=== PATIENT | male | born 1960 | race African-American/Black ===

== ENCOUNTER 2024-11-15 18:39 | Emergency (ER) | payer OTHER, SELFPAY ==
[2024-11-15] VITALS (21 sets, daily range): BP systolic 186–231; BP diastolic 109–157; PULSE 60–78; RESP 13–23; TEMP 36.9; O2SAT 93–100
--- NOTE | ~2024-11-15 | CT_ITS ---
History: Vertigo PROCEDURE: CT head without contrast. COMPARISON: 03/26/2014 TECHNIQUE: Axial imaging of the head performed from the skull base to the vertex without IV contrast. Sagittal a nd coronal reformations obtained. DLP: 605 mGy-cm FINDINGS: The ventricles are normal in size, shape and position. There is no mass, mass effect or midline shift. There is no abnormal extra-axial fluid collection or intracranial hemorrhage. Visualized paranasal sinuses are clear. The mastoid air cells are well aerated. No acute displaced fractures within the overlying cranium. Impression: No acute intracranial hemorrhage or suspicious mass effect. Reviewed, dictated and finalized at location A. Impression: No acute intracranial hemorrhage or suspicious mass effect.
--- NOTE | ~2024-11-15 | CT_ITS ---
CTA brain carotid Ordering provider: Prasanna Elliott MD History: . cva . Comparison: None. Technique: CT angiogram head and neck was performed following timed intravenous injection of contrast . Thin slice axial images and reformatted coronal images were obtained. Three dimensional reformatted images of the brain were also obtained using a [employer] workstation. FINDINGS: HEAD: --ANTERIOR AND MIDDLE CEREBRAL ARTERIES AND BRANCHES: Normal caliber and contour. --INTERNAL CAROTID ARTERIES: Mild atheromatous disease but no significant stenosis. No occlusion. --BASILAR ARTERY AND BRANCHES: Mild atheromatous disease but no stenosis or occlusion. 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 --ANEURYSM: None visualized. --BRAIN: Please refer to report of CT head performed the same day. --BONES AND SUPERFICIAL SOFT TISSUES: Please refer to report of CT head performed the same day. --PARANASAL SINUSES AND MASTOIDS: Please refer to report of CT head done the same day. NECK: --RIGHT CERVICAL CAROTID SYSTEM: Normal caliber and contour. Percent stenosis per NASCET criteria is 0% No carotid dissection. --LEFT CERVICAL CAROTID SYSTEM: Normal caliber and contour. Percent stenosis per NASCET criteria is 0% No carotid dissection. --VERTEBRAL ARTERIES: Moderate atheromatous disease within the origin of the bilateral vertebral williams richelle. --VISUALIZED AORTIC ARCH AND BRANCHING VESSELS: Normal caliber and contour. No significant atheromato us disease. --SOFT TISSUES: Unremarkable --CERVICAL SPINE: Age appropriate degenerative changes. IMPRESSION: 1. Percent stenosis per NASCET criteria within the internal carotid arteries bilaterally is 0%. 2. Significant calcified atheromatous disease margins of the bilateral vertebral arteries without po ststenotic dilatation or additional abnormality. Reviewed, dictated and finalized at location A. IMPRESSION: 1. Percent stenosis per NASCET criteria within the internal carotid arteries b ilaterally is 0%. 2. Significant calcified atheromatous disease margins of the bilateral vertebr al arteries without poststenotic dilatation or additional abnormality.
--- NOTE | ~2024-11-15 | XR_ITS ---
CHEST RADIOGRAPH CLINICAL HISTORY: CVA . COMPARISON: None available TECHNIQUE: Single portable view of the chest. FINDINGS The cardiomediastinal silhouette is unremarkable. The lungs are clear. IMPRESSION: No focal infiltrate or effusion. Reviewed, dictated and finalized at location A.
--- NOTE | 2024-11-15 18:51 | ECG_ITS ---
Test Date: 2024-11-15 19:08:49 Measurements Intervals [place] Rate: 71 P: 34 SC: 160 QRS: 55 QRSD: 88 T: 55 QT: 391 QTc: 426 Interpretive Statements SINUS RHYTHM POSSIBLE LEFT ATRIAL ENLARGEMENT MINIMAL Q WAVES- INFERIOR LEADS BORDERLINE T WAVE ABNORMALITY- ANTERIOR LEADS BORDERLINE ECG No previous ECG available for comparison Electronically Signed On 11-15-2024 20:15:55 CDT by Robel Márquez D.O.
[2024-11-15 19:05] LABS: Glucose Point of Care 124 mg/dl (65-105)
[2024-11-15 19:15] LABS: Basophils Absolute Auto 0.03 K/mm3 (0.00-0.10); Basophils Percent Auto 0.6 % (0.0-1.0); Eosinophils Absolute Auto 0.11 K/mm3 (0.02-0.50); Hematocrit 45.8 % (40.0-54.0); Hemoglobin 14.7 g/dL (14.0-18.0); Immature Granulocyte Absolute 0.02 K/mm3 (0.00-0.00); Immature Granulocyte Percent A 0.4 % (0.0-0.0); Lymphocytes Absolute Auto 1.49 K/mm3 (1.10-4.50); Lymphocytes Percent Auto 27.5 % (18.0-42.0); Mean Corpuscular HGB Conc 32.1 g/dL (32-36); Mean Corpuscular Hemoglobin 28.3 pg (27.0-31.0); Mean Corpuscular Volume 88.1 fL (78.0-102.0); Mean Platelet Volume 9.4 fl (8.7-11.0); Monocytes Absolute Auto 0.47 K/mm3 (0.10-0.90); Monocytes Percent Auto 8.7 % (2.0-11.0); Neutrophils Percent Auto 60.8 % (50.0-70.0); Platelet Count Result 183 K/mm3 (150-420); Red Cell Distribution Width 13.4 % (11.6-14.4); White Blood Count 5.4 K/mm3 (4.8-10.8)
[2024-11-15 19:27] LABS: Alanine Aminotransferase 20 U/L (6-50); Alkaline Phosphatase 62 U/L (38-126); Anion Gap 4 mmol/L (4-12); Aspartate Amino Transferase 35 U/L (17-59); Bilirubin,Total 0.4 mg/dL (0.2-1.3); Blood Urea Nitrogen 23 mg/dL (9-20); Calcium 8.9 mg/dL (8.4-10.2); Carbon Dioxide 30 mmol/L (22-30); Chloride 107 mmol/L (98-107); Estimated CRCL calculation 41 ml/min; Estimated Glomerular Filt Rate 37; Glucose 110 mg/dL (65-110); Osmolality Calculated 296 mOsm/kg (285-295); Potassium 3.6 mmol/L (3.4-5.0); Sodium 141 mmol/L (137-145); Total Protein 7.1 g/dL (6.3-8.2)
[2024-11-15 19:28] LABS: Partial Thromboplastin Time 26.5 Sec (23.9-30.70); Prothrombin Time 10.6 Seconds (9.50-12.1)
[2024-11-15 19:36] LABS: Add Urine Microscopic? YES; Appearance Urine Clear (Clear); Bilirubin Urine Negative (Negative); Blood Urine 1+ (Negative); Color Urine Light Yellow (Yellow); Glucose Urine UA Negative (Negative); Ketones Urine Negative (Negative); Leukocyte Esterase Ur Trace LEU/UL (Negative); Nitrate Urine Negative (Negative); Protein Urine Trace (Negative); Urobilinogen Urine 0.2 mg/dL (0.2-1.0)
[2024-11-15 19:38] LABS: Troponin I 0.012 ng/mL (0.000-0.034)
[2024-11-15 19:43] LABS: Bacteria Urine None seen /hpf; RBC Urine 0-2 /hpf (0-2); Squamous Epithelial Cell Urine None seen /hpf (Few); WBC Urine 0-3 /hpf (0-3)
[2024-11-15 19:54] LABS: Amphetamine Screen Urine Negative (Negative); Barbiturate Screen Urine Negative (Negative); Benzodiazepines Screen Urine Negative (Negative); Cannabinoid Screen Urine Negative (Negative); Cocaine Screen Urine Negative (Negative); Methadone Screen Urine Negative (Negative); Opiate Screen Urine Negative (Negative); Phencyclidine Screen Urine Negative (Negative)
[2024-11-15] MEDS: LABETALOL HCL INJ 100 MG/20 ML VIAL 10 MG IV PUSH (21:09)
[2024-11-15] MEDS: ASPIRIN 325 MG ENTERIC TABLET PO (22:22)
--- NOTE | 2024-11-15 22:46 | ED_ITS ---
HPI - Neuro Symptoms/Deficit General Chief Complaint: Dizziness Stated Complaint: dizziness Time Seen by Provider: 11/15/24 19:25 Source: patient and family Mode of arrival: ambulatory Limitations: no limitations History of Present Illness HPI Narrative: Patient is a 64-year-old male with difficulty walking during tasks due to his right lower extremity giving some weakness sensation. This has been on and off for the past week. He also has difficulty with his speech finding words at times in the past 4 days. He presents to the emergency room after symptoms started a few days ago. They have been ongoing symptoms for the past few days. He is not a tPA candidate. patient was on high blood pressure medications in the past but had side effects and kidney changes so he stopped all the medicine on his own sometime ago. Onset (ago): day(s) Timing confirmed by: spouse Location: speech and right leg History of same: Yes ( For the past week) Severity: mild Quality: weak ( right lower extremity) Relieving factors: time Exacerbating factors: none Context: gradual onset On Anticoagulants: No Associated symptoms: denies other symptoms Treatments Prior to Arrival: none Related Data Home Medications ?Medication ?Instructions ?Recorded ?Confirmed ?Last Taken ?Type amlodipine 5 mg-benazepril 20 mg 1 cap PO DAILY 09/25/23 09/25/23 Unknown History capsule Allergies Allergy/AdvReac Type Severity Reaction Status Date / Time No Known Allergies Allergy Verified 11/15/24 18:45 Review of Systems 2 Review of Systems: All systems reviewed & are unremarkable except as noted in HPI and below Constitutional: Constitutional: Reports no additional constitutional complaints Eyes: Eyes: Reports no additional eye complaints ENT: Reports system reviewed and no additional complaints, except as documented Cardiovascular: Cardiovascular: Reports no additional cardiovascular complaints Respiratory: Respiratory: Reports no additional respiratory complaints Gastrointestinal: Gastrointestinal: Reports no additional gastrointestinal complaints Genitourinary: Genitourinary: Reports no additional male genitourinary complaints Musculoskeletal: Musculoskeletal: Reports no additional musculoskeletal complaints Integumentary/Breasts: Skin/Breast: Reports system reviewed and no additional complaints, except as docu Neurologic: Reports system reviewed and no additional complaints, except as documented Psychiatric: Psychiatric: Reports no additional psychiatric complaints Endocrine: Endocrine: Reports no additional endocrine complaints Hematologic/Lymphatic: Hematologic/Lymphatic: Reports no additional hematologic/lymphatic complaints Allergic/Immunologic: Allergic/Immunologic: Reports no additional allergic/immunologic complaints [facility] Past Medical History Medical History Hyperlipidemia Hypertension CKD (chronic kidney disease) Family History Family History Mother Hypertension Esophageal cancer Social History Social History Smoking status: Never smoker Second hand tobacco smoke exposure: No Alcohol intake: never Substance use: never Substance use type: unknown Do You Feel Safe in your Home?: Yes Lack of Transportation: No Lack of Food: Never True Current Housing: I Have Housing Concerned About Future Housing: No Difficulty Paying Gas/Electric Bills: No Difficulty Paying for Meds: No Currently Unemployed: No Education: Bachelor's Degree Difficulty w/ Childcare or Family Care: No Gender identity (if verbalized by the patient): Male Exam 2 Const: General: healthy appearing Nutritional Appearance: well nourished Orientation/consciousness: patient oriented x3 Limitations: no limitations HENMT: Head: normal to inspection Ears: external ears normal F uziel/Nose/Sinus: Normal external nose present Eyes: Conjunctivae: conjunctivae normal Pupils: Equal, round and reactive pupils present EOM: EOMs intact bilaterally Neck: Neck: normal visual inspection Chest: Chest palpation & inspection: normal inspection of the chest Resp: Effort & Inspection: normal respiratory effort and not labored A uscultation: clear to auscultation bilaterally and no crackles Cardio: Rate: regular rate Rhythm: regular rhythm Heart sounds: no murmurs GI: Inspection: non-distended GI Palp: Yes Soft to palpation and No Tenderness to palpation present (GI) Auscultation: normal bowel sounds : General: Yes bladder normal to palpation Back/Spine/Pelvis: Back: no CVA tenderness Skin: General skin exam: normal color Rashes: no rashes Wounds: no wounds Neuro: General: patient oriented x3, moves all extremities, no meningeal signs, no focal motor deficits and CN's II-XI intact bilaterally Cranial nerves: Yes Nystagmus not present Speech: normal speech Gait exam (Neuro): Normal gait present Other: Patient has normal gait upon walking but slight difficulties with doing specific tasks; his speech at this time is back to normal according to the family and the patient NIH score is 0, fast exam was negative, GCS is 15 Extrem: General: normal to inspection Psych: Mental Status: mental status grossly normal Affect: normal affect Attitude: cooperative Course Vital Signs Vital signs: Vital Signs Temperature 36.9 C 11/15/24 18:40 Pulse Rate 73 11/15/24 18:40 Respiratory Rate 16 11/15/24 18:40 Blood Pressure 199/109 H 11/15/24 18:40 Pulse Oximetry 98 11/15/24 18:40 Oxygen Delivery Room Air 11/15/24 18:40 Temperature 36.9 C 11/15/24 18:40 Pulse Rate 66 11/15/24 22:31 Respiratory Rate 13 11/15/24 22:31 Blood Pressure 231/140 H 11/15/24 22:31 Pulse Oximetry 98 11/15/24 22:31 Oxygen Delivery Room Air 11/15/24 18:40 MDM - Neuro Symptoms/Deficit MDM Narrative Medical decision making narrative: patient is a 64-year-old male with neurological changes to suggest possible TIA/CVA. We will do a neurological workup at this time. Workup is negative for any acute findings. We will transfer patient for further neurological evaluation. Lab Data Attestation: I reviewed the patient's lab results. 11/15/24 19:11 11/15/24 19:11 Labs: Lab Results 11/15/24 11/15/24 11/15/24 Range/Units 19:01 19:11 19:31 WBC 5.4 (4.8-10.8) K/mm3 RBC 5.20 (4.70-6.10) M/mm3 Hgb 14.7 (14.0-18.0) g/dL Hct 45.8 (40.0-54.0) % MCV 88.1 (78.0-102.0) fL MCH 28.3 (27.0-31.0) pg MCHC 32.1 (32-36) g/dL RDW 13.4 (11.6-14.4) % Plt Count 183 (150-420) K/mm3 MPV 9.4 (8.7-11.0) fl Immature Gran % (Auto) 0.4 H (0.0-0.0) % Neut % (Auto) 60.8 (50.0-70.0) % Lymph % (Auto) 27.5 (18.0-42.0) % [place] % (Auto) 8.7 (2.0-11.0) % Eos % (Auto) 2.0 (1.0-6.0) % Baso % (Auto) 0.6 (0.0-1.0) % Lymph # (Auto) 1.49 (1.10-4.50) K/mm3 [place] # (Auto) 0.47 (0.10-0.90) K/mm3 Eos # (Auto) 0.11 (0.02-0.50) K/mm3 Baso # (Auto) 0.03 (0.00-0.10) K/mm3 Abs Immat Gran (auto) 0.02 H (0.00-0.00) K/mm3 Absolute Neuts (auto) 3.30 (1.70-7.20) K/mm3 Absolute Nucleated RBC 0.00 (0.00-0.00) K/mm3 Nucleated RBC % 0.0 (0-0.0) % PT 10.6 (9.50-12.1) Seconds INR 1.0 APTT 26.5 (23.9-30.70) Sec Sodium 141 (137-145) mmol/L Potassium 3.6 (3.4-5.0) mmol/L Chloride 107 (98-107) mmol/L Carbon Dioxide 30 (22-30) mmol/L Anion Gap 4 (4-12) mmol/L BUN 23 H (9-20) mg/dL Creatinine 1.88 H (0.7-1.3) mg/dL Estim Creat Clear Calc 41 ml/min Estimated GFR 37 L (59 - ) Glucose 110 (65-110) mg/dL POC Capillary Glucose 124 H (65-105) mg/dl Calculated Osmolality 296 H (285-295) mOsm/kg Calcium 8.9 (8.4-10.2) mg/dL Total Bilirubin 0.4 (0.2-1.3) mg/dL AST 35 (17-59) U/L ALT 20 (6-50) U/L Alkaline Phosphatase 62 (38-126) U/L Troponin I 0.012 (0.000-0.034) ng/mL Total Protein 7.1 (6.3-8.2) g/dL Albumin 4.0 (3.5-5.1) g/dL Urine Color Light yellow (Yellow) Urine Appearance Clear (Clear) Urine pH 6.0 (5.0-8.0) Ur Specific [place] 1.010 (1.010-1.020) Urine Protein Trace H (Negative) Urine Glucose (UA) Negative (Negative) Urine Ketones Negative (Negative) Ur Blood (Man) 1+ H (Negative) Urine Nitrate Negative (Negative) Urine Bilirubin Negative (Negative) Urine Urobilinogen 0.2 (0.2-1.0) mg/dL Leukocyte Esterase Rfl Trace H (Negative) TERRENCE/UL Urine RBC 0-2 (0-2) /hpf Urine WBC 0-3 (0-3) /hpf Ur Squamous Epith Cells None seen (Few) /hpf Urine Bacteria None seen (None) /hpf Urine Opiates Screen Negative (Negative) Urine Methadone Screen Negative (Negative) Ur Barbiturates Screen Negative (Negative) Ur Phencyclidine Scrn Negative (Negative) Ur Amphetamine Screen Negative (Negative) U Benzodiazepines Scrn Negative (Negative) Urine Cocaine Screen Negative (Negative) U Cannabinoids Screen Negative (Negative) Imaging Data Attestation: I personally reviewed and interpreted this imaging study as follows: Radiologist's impression: CT scan of the head was negative for acute process chest x-ray was negative for acute process CTA of the head and neck was negative for acute process ECG Data EKG #1: Attestation: I personally reviewed and interpreted this ECG as follows: ECG completion date: 11/15/24 ECG completion time: 22:52 EKG Interpretation: normal rate, sinus rhythm, no ectopy, no ST changes, normal QRS, normal QT, NL axis and no acute changes Discharge Plan Discharge Clinical Impression: Acute CVA (cerebrovascular accident) Patient Disposition: Acute Care Hospital Condition: Stable Patient Language: Lao Prescriptions: No Action amlodipine-benazepril 5-20 mg capsule 1 cap PO DAILY Follow-up/Referrals: Mani Jones M.D. [Primary Care Provider] - Time of Disposition: 22:53
[2024-11-15] MEDS: niCARdipine 20 MG/200 ML 20 MG/200 ML BAG 50 MG IV CONT (22:53)
--- NOTE | 2024-11-15 23:15 | PC.NURSE ---
Requested pt transfer from [facility] at 2310hrs. Hilda called at 2315hrs and said that they wouldn't be available to transport pt for 2-3 hrs. Told her no problem, I would call [facility]. Called and canceled request with [facility] at 2346hrs.
== END 2024-11-15 23:47 | disposition short-term general hospital (02) ==
PROVIDERS: Emergency Medicine; Emergency Provider Emergency Medicine; PCP Specialist
DX: I63.9 Cerebral infarction, unspecified (principal); I12.9 Hypertensive chronic kidney disease with stage 1 through stage 4 chronic kidney disease, or unspecified chronic kidney disease; N18.9 Chronic kidney disease, unspecified; E78.5 Hyperlipidemia, unspecified; Z79.899 Other long term (current) drug therapy
CPT/HCPCS: 36415; 70450; 70496; 70498; 71045; 80053; 80307; 81001; 82948; 84484; 85025; 85610; 85730; 93005; 96365; 96366; 96375; 99285; A9270; J2404; Q9967